=== PATIENT | male | born 1995 | race Caucasian/White ===

== ENCOUNTER 2017-03-11 13:40 | Emergency (ER) | payer MEDICAID ==
[~2017-03-11] VITALS: Ht 188 cm; Wt 68.0 kg
[2017-03-11 14:14] VITALS: BP 131/84
== END 2017-03-11 15:43 | disposition home or self-care (01) ==
LOC: ER 13:49
DX: S42.262A Displaced fracture of lesser tuberosity of left humerus, initial encounter for closed fracture (principal); X58.XXXA Exposure to other specified factors, initial encounter; Y93.89 Activity, other specified; Y92.89 Other specified places as the place of occurrence of the external cause; Y99.8 Other external cause status
CPT/HCPCS: 73030

== ENCOUNTER 2017-05-10 18:46 | Emergency (ER) | payer MEDICAID ==
[~2017-05-10] VITALS: Ht 190.5 cm; Wt 68.0 kg
[2017-05-10] MEDS ORDERED: ONDANSETRON HCL 4 MG/2 ML VIAL IV ONE (19:30)
[2017-05-10] MEDS ORDERED: HYDROmorphone HCL 2 MG/ML VL IV ONE (19:30)
[2017-05-10] MEDS ORDERED: LEVETIRACETAM INJ 1,000 MG in SODIUM CHL 0.9% 100 ML IV ONE (19:30)
[2017-05-10] MEDS ORDERED: MORPHINE SULF INJ 2 MG/ML SYRINGE 1ML IV ONE (21:00)
[2017-05-10] MEDS ORDERED: ETOMIDATE (2MG/ML) 20ML VIAL IV ONE (21:30)
[2017-05-10] MEDS ORDERED: PROPOFOL 10 MG/ML 20 ML IV ONE ×2 (21:53→22:30)
[2017-05-10] MEDS ORDERED: LORazepam 2MG/ML-1ML VIAL IV ONE ×2 (22:30)
[2017-05-10 23:30] VITALS: BP 129/56
== END 2017-05-11 00:30 | disposition home or self-care (01) ==
LOC: ER 18:46
DX: S43.014A Anterior dislocation of right humerus, initial encounter (principal); S43.005A Unspecified dislocation of left shoulder joint, initial encounter; R56.9 Unspecified convulsions; W19.XXXA Unspecified fall, initial encounter; Y93.89 Activity, other specified; Y92.89 Other specified places as the place of occurrence of the external cause; Y99.8 Other external cause status
CPT/HCPCS: 23650; 73020; 73030; 96365; 96375; 99152; 99153; 99285; J1170; J1953; J2270; J2405; J2704; J7030

== ENCOUNTER 2018-01-29 17:51 | Emergency (ER) | payer MEDICAID, OTHER ==
[~2018-01-29] VITALS: Ht 177.8 cm; Wt 72.6 kg
[2018-01-29] MEDS ORDERED: SODIUM CHLORIDE 0.9% 1,000 ML IV ONE (19:30)
[2018-01-29] MEDS ORDERED: PROPOFOL 10 MG/ML 20 ML IV ONE (19:30)
[2018-01-29] MEDS ORDERED: LORazepam 2MG/ML-1ML VIAL IV ONE (19:45)
[2018-01-29] MEDS ORDERED: PROPOFOL 100 ML IV ONE (19:48)
[2018-01-29] MEDS ORDERED: FLUMAZENIL 0.1 MG/ML INJ 10ML MDV IV ONE ×2 (20:58→21:00)
[2018-01-29 22:02] VITALS: BP 125/65
== END 2018-01-29 22:37 | disposition home or self-care (01) ==
LOC: EDBD 17:51 → ER 18:01
DX: S42.291A Other displaced fracture of upper end of right humerus, initial encounter for closed fracture (principal); M24.411 Recurrent dislocation, right shoulder; X58.XXXA Exposure to other specified factors, initial encounter; Y93.89 Activity, other specified; Y92.89 Other specified places as the place of occurrence of the external cause; Y99.8 Other external cause status
CPT/HCPCS: 23650; 73020; 73030; 96374; 96375; 99152; 99285; J2060; J2704; J7030

== ENCOUNTER 2018-05-06 10:35 | Emergency (ER) | payer MEDICAID ==
[~2018-05-06] VITALS: Ht 188 cm; Wt 68.0 kg
[2018-05-06 10:40] VITALS: BP 116/74
== END 2018-05-06 12:19 | disposition home or self-care (01) ==
LOC: ER 10:38
DX: L03.116 Cellulitis of left lower limb (principal)

== ENCOUNTER 2018-09-04 05:01 | Emergency (ER) | payer MEDICAID ==
[~2018-09-04] VITALS: Ht 188 cm; Wt 68.0 kg
[2018-09-04 05:18] VITALS: BP 141/85
[2018-09-04] MEDS ORDERED: MIDAZOLAM HCL 5 MG/ML-1ML VIAL IM ONE (05:30)
== END 2018-09-04 06:35 | disposition home or self-care (01) ==
LOC: ER 05:01
DX: M24.411 Recurrent dislocation, right shoulder (principal)
CPT/HCPCS: 23650; 73020; 73030; 99284; J2250; 96372

== ENCOUNTER 2018-09-25 23:22 | Emergency (ER) | payer MEDICAID ==
[~2018-09-25] VITALS: Ht 190.5 cm; Wt 70.3 kg
[2018-09-26] VITALS: BP 132/85
[2018-09-26] MEDS ORDERED: ONDANSETRON HCL 4 MG/2 ML VIAL IV ONE
[2018-09-26] MEDS ORDERED: HYDROmorphone HCL 2 MG/ML VL IV ONE
[2018-09-26] MEDS ORDERED: MIDAZOLAM HCL 5 MG/ML-1ML VIAL IV ONE (00:45)
[2018-09-26] MEDS ORDERED: MIDAZOLAM HCL 1MG/1ML-2 ML VIAL IV ONE (00:45)
== END 2018-09-26 01:34 | disposition home or self-care (01) ==
LOC: ER 23:25
DX: S43.014A Anterior dislocation of right humerus, initial encounter (principal); X58.XXXA Exposure to other specified factors, initial encounter; Y93.89 Activity, other specified; Y99.8 Other external cause status; Y92.89 Other specified places as the place of occurrence of the external cause
CPT/HCPCS: 23650; 73020; 73030; 96374; 96375; 99284; J1170; J2250; J2405

== ENCOUNTER 2019-02-23 10:46 | Emergency (ER) | payer MEDICAID ==
[~2019-02-23] VITALS: Ht 190.5 cm; Wt 72.6 kg
[2019-02-23] MEDS ORDERED: MIDAZOLAM HCL 5 MG/ML-1ML VIAL IV ONE (12:30)
[2019-02-23] MEDS ORDERED: ETOMIDATE (2MG/ML) 20ML VIAL IV ONE (12:30)
[2019-02-23 16:12] VITALS: BP 119/79
== END 2019-02-23 16:14 | disposition home or self-care (01) ==
LOC: ER 10:46
DX: S43.004A Unspecified dislocation of right shoulder joint, initial encounter (principal); X50.0XXA Overexertion from strenuous movement or load, initial encounter; Y93.89 Activity, other specified; Y99.8 Other external cause status; Y92.89 Other specified places as the place of occurrence of the external cause
CPT/HCPCS: 23650; 73030; 99152; 99285; J2250

== ENCOUNTER 2019-06-02 16:13 | Emergency (ER) | payer MEDICAID ==
[~2019-06-02] VITALS: Ht 190.5 cm; Wt 72.6 kg
[2019-06-02] MEDS ORDERED: MIDAZOLAM HCL 5 MG/ML-1ML VIAL ONE (16:53)
[2019-06-02] MEDS ORDERED: ETOMIDATE (2MG/ML) 20ML VIAL IV ONE ×2 (16:55)
[2019-06-02] MEDS ORDERED: MIDAZOLAM HCL 5 MG/ML-1ML VIAL IV ONE (16:55)
[2019-06-02 17:55] VITALS: BP 131/85
== END 2019-06-02 18:31 | disposition home or self-care (01) ==
LOC: ER 16:13
DX: S43.004A Unspecified dislocation of right shoulder joint, initial encounter (principal); X50.1XXA Overexertion from prolonged static or awkward postures, initial encounter; Y93.89 Activity, other specified; Y92.89 Other specified places as the place of occurrence of the external cause; Y99.8 Other external cause status
CPT/HCPCS: 23650; 73030; 99152; 99285; J2250

== ENCOUNTER 2019-06-05 23:31 | Emergency (ER) | payer MEDICAID ==
[~2019-06-05] VITALS: Ht 190.5 cm; Wt 72.6 kg
[2019-06-06] MEDS ORDERED: MORPHINE SULFATE 4 MG/ML SYR/VIAL IV ONE (02:30)
[2019-06-06] MEDS ORDERED: ONDANSETRON HCL 4 MG/2 ML VIAL IV ONE (02:30)
[2019-06-06] MEDS ORDERED: ETOMIDATE (2MG/ML) 20ML VIAL IV ONE (02:45)
[2019-06-06 03:39] VITALS: BP 125/81
== END 2019-06-06 04:16 | disposition home or self-care (01) ==
LOC: ER 23:36
DX: S43.004A Unspecified dislocation of right shoulder joint, initial encounter (principal); X58.XXXA Exposure to other specified factors, initial encounter; Y93.89 Activity, other specified; Y92.89 Other specified places as the place of occurrence of the external cause; Y99.8 Other external cause status
CPT/HCPCS: 23650; 73020; 73030; 96374; 96375; 99285; J2270; J2405

== ENCOUNTER 2019-07-07 08:19 | Emergency (ER) | payer MEDICAID ==
[~2019-07-07] VITALS: Ht 167.6 cm; Wt 68.0 kg
[2019-07-07 09:27] LABS: Basophils # (auto) 0 uL; Basophils % (auto) 0.4 % (0.0-2.0); Eosinophils # (auto) 0 uL; Eosinophils % (auto) 0.4 % (0.0-7.0); Hematocrit 47.5 % (41.0-53.0); Hemoglobin 16.1 g/dL (13.5-17.5); Lymphocytes # (auto) 1.2 uL; Lymphocytes % (auto) 10.4 % (10.0-50.0); Mean Corpuscular Hemoglobin 30.5 pg (28.0-32.0); Mean Corpuscular Volume 89.9 fL (80.0-100.0); Monocytes # (auto) 0.5 uL; Monocytes % (auto) 4.7 % (0.0-12.0); Neutrophils # (auto) 9.4 uL; Neutrophils % (auto) 84.1 % (37.0-80.0); Nucleated Red Blood Cells % 0.3 %; Platelet Count (auto) 302 10^3/uL (140-450); Red Blood Cells 5.28 10^6/uL (4.5-5.90); Red Cell Distribution Width 13.5 % (11.8-14.3); White Blood Cell 11.2 10^3/uL (4.4-10.8)
[2019-07-07 09:46] LABS: Albumin 4.3 g/dL (3.4-5.0); Anion Gap 6 (5-15); Blood Alcohol < 3.0 mg/dL (0-5); Blood Urea Nitrogen 7 mg/dL (7-18); Calcium 8.8 mg/dL (8.5-10.1); Carbon Dioxide 25 mmol/L (21-32); Chloride 107 mmol/L (98-107); Glucose 170 mg/dL (74-106); Potassium 3.5 mmol/L (3.5-5.1); Sodium 138 mmol/L (136-145)
[2019-07-07 09:48] LABS: Salicylate 2.4 mg/dL (2.8-20.0)
[2019-07-07 09:48] LABS: Alcohol, Urine < 3.0 mg/dL (0-5); Amphetamine Screen, Urine POSITIVE (NEGATIVE); Barbiturate Scree,Urine NEGATIVE (NEGATIVE); Benzodiazephine Screen, Urine POSITIVE (NEGATIVE); Cannabinoid Screen, Urine POSITIVE (NEGATIVE); Cocaine Screen, Urine NEGATIVE (NEGATIVE); Opiate Scree,Urine NEGATIVE (NEGATIVE)
[2019-07-07 09:50] LABS: Alanine Aminotransferase 31 U/L (16-61); Alkaline Phosphatase 117 U/L (45-117); Aspartate Aminotransferase 23 U/L (15-37); BUN/Creatinine Ratio 6.1; Bilirubin, Total 0.5 mg/dL (0.2-1.0); GFR African American 103 mL/min; GFR Non-African American 85 mL/min; Magnesium 2.3 mg/dL (1.6-2.6); Total Protein 8.5 g/dL (6.4-8.2)
[2019-07-07 09:57] LABS: Phencyclidine Screen, Urine NEGATIVE (NEGATIVE)
[2019-07-07 10:01] LABS: Acetaminophen < 2.0 ug/mL (10-30)
[2019-07-07] MEDS ORDERED: SODIUM CHLORIDE 0.9% 1,000 ML IVB ONE (11:34)
[2019-07-07 12:29] LABS: INR 1.11 (0.9-1.15)
[2019-07-07] MEDS ORDERED: ONDANSETRON HCL 4 MG/2 ML VIAL IV ONE (13:30)
[2019-07-07 15:39] VITALS: BP 137/84
== END 2019-07-07 15:29 | disposition home or self-care (01) ==
LOC: ER 08:19 → EDBD 08:19 → ER 15:29
DX: F12.10 Cannabis abuse, uncomplicated (principal); F15.10 Other stimulant abuse, uncomplicated; F19.10 Other psychoactive substance abuse, uncomplicated; F32.9 Major depressive disorder, single episode, unspecified
CPT/HCPCS: 36415; 70450; 71045; 80053; 80307; 80320; 80329; 83735; 85025; 85610; 85730; 93005; 96361; 96374; 99284; J2405; J7030

== ENCOUNTER 2020-01-12 04:24 | Emergency (ER) | payer MEDICAID ==
[~2020-01-12] VITALS: Ht 175.3 cm; Wt 65.8 kg
[2020-01-12 05:18] LABS: Basophils # (auto) 0 10 ^3/uL (0-0.2); Basophils % (auto) 0.7 % (0.0-2.0); Eosinophils # (auto) 0.3 10 ^3/uL (0-0.8); Eosinophils % (auto) 4.4 % (0.0-7.0); Hematocrit 47.9 % (41.0-53.0); Hemoglobin 16.2 g/dL (13.5-17.5); Lymphocytes # (auto) 1.5 10 ^3/uL (0.4-5.4); Lymphocytes % (auto) 24.1 % (10.0-50.0); Mean Corpuscular Hemoglobin 29.5 pg (28.0-32.0); Mean Corpuscular Hgb Conc. 33.9 g/dL (32.0-36.0); Mean Corpuscular Volume 86.9 fL (80.0-100.0); Monocytes # (auto) 0.5 10 ^3/uL (0-1.3); Monocytes % (auto) 8.5 % (0.0-12.0); Neutrophils # (auto) 3.8 10 ^3/uL (1.6-8.6); Neutrophils % (auto) 62.3 % (37.0-80.0); Nucleated Red Blood Cells % 0.5 %; Platelet Count (auto) 220 10^3/uL (140-450); Red Blood Cells 5.51 10^6/uL (4.5-5.90); Red Cell Distribution Width 12.8 % (11.8-14.3)
[2020-01-12 05:39] LABS: Anion Gap 10 (5-15); Blood Urea Nitrogen 14 mg/dL (7-18); Calcium 8.5 mg/dL (8.5-10.1); Carbon Dioxide 26 mmol/L (21-32); Chloride 101 mmol/L (98-107); Glucose 166 mg/dL (74-106); Potassium 3.6 mmol/L (3.5-5.1); Sodium 137 mmol/L (136-145)
[2020-01-12 05:41] LABS: Alanine Aminotransferase 46 U/L (16-61); Aspartate Aminotransferase 39 U/L (15-37); Blood Alcohol < 3.0 mg/dL (0-5); GFR African American 63 mL/min; GFR Non-African American 52 mL/min; Salicylate < 1.7 mg/dL (2.8-20.0)
[2020-01-12 05:43] LABS: Acetaminophen < 2.0 ug/mL (10-30)
[2020-01-12 05:44] LABS: Alkaline Phosphatase 138 U/L (45-117); Bilirubin, Total 1.4 mg/dL (0.2-1.0); Total Protein 7.3 g/dL (6.4-8.2)
[2020-01-12 06:41] LABS: Alcohol, Urine < 3.0 mg/dL (0-10); Amphetamine Screen, Urine POSITIVE (NEGATIVE); Barbiturate Scree,Urine NEGATIVE (NEGATIVE); Benzodiazephine Screen, Urine POSITIVE (NEGATIVE); Cannabinoid Screen, Urine POSITIVE (NEGATIVE); Cocaine Screen, Urine POSITIVE (NEGATIVE); Opiate Scree,Urine NEGATIVE (NEGATIVE); Phencyclidine Screen, Urine NEGATIVE (NEGATIVE)
[2020-01-12 08:46] VITALS: BP 123/81
== END 2020-01-12 08:47 | disposition home or self-care (01) ==
LOC: ER 04:24 → EDBD 04:24 → ER 08:47
DX: R40.4 Transient alteration of awareness (principal); F19.10 Other psychoactive substance abuse, uncomplicated
CPT/HCPCS: 36415; 80053; 80307; 80320; 80329; 85025; 93005

== ENCOUNTER 2020-02-28 12:25 | Emergency (ER) | payer MEDICAID ==
[~2020-02-28] VITALS: Ht 185.4 cm; Wt 77.1 kg
[2020-02-28] MEDS ORDERED: ETOMIDATE (2MG/ML) 20ML VIAL IV ONE (12:45)
[2020-02-28 13:40] VITALS: BP 153/81
== END 2020-02-28 14:06 | disposition home or self-care (01) ==
LOC: ER 12:25
DX: S43.004A Unspecified dislocation of right shoulder joint, initial encounter (principal); X58.XXXA Exposure to other specified factors, initial encounter; Y93.89 Activity, other specified; Y92.89 Other specified places as the place of occurrence of the external cause; Y99.8 Other external cause status
CPT/HCPCS: 23650; 73020; 99152

== ENCOUNTER 2021-03-01 00:11 | Emergency (ER) | payer MEDICAID ==
[~2021-03-01] VITALS: Ht 193 cm; Wt 86.2 kg
[2021-03-01] MEDS ORDERED: ETOMIDATE (2MG/ML) 20ML VIAL IV ONE ×2 (00:30→01:30)
[2021-03-01] MEDS ORDERED: fentaNYL CITRATE 100 MCG/2 ML VL IV ONE (00:30)
[2021-03-01 02:01] VITALS: BP 121/70
== END 2021-03-01 02:00 | disposition home or self-care (01) ==
LOC: ER 00:14
DX: S43.004A Unspecified dislocation of right shoulder joint, initial encounter (principal); X50.1XXA Overexertion from prolonged static or awkward postures, initial encounter; Y93.89 Activity, other specified; Y92.89 Other specified places as the place of occurrence of the external cause; Y99.8 Other external cause status
CPT/HCPCS: 23650; 73020; 73030; 96374; 99152; 99285; J3010

== ENCOUNTER 2021-05-10 04:22 | Emergency (ER) | payer MEDICAID ==
[~2021-05-10] VITALS: Ht 190.5 cm; Wt 81.6 kg
[2021-05-10] MEDS ORDERED: ONDANSETRON HCL 4 MG/2 ML VIAL IV ONE (09:15)
[2021-05-10] MEDS ORDERED: HYDROmorphone HCL 2 MG/ML VL IV ONE (09:15)
[2021-05-10] MEDS ORDERED: ETOMIDATE (2MG/ML) 20ML VIAL IV STA (10:49)
[2021-05-10 11:38] VITALS: BP 148/89
== END 2021-05-10 12:42 | disposition home or self-care (01) ==
LOC: ER 04:22
DX: S43.004A Unspecified dislocation of right shoulder joint, initial encounter (principal); W01.0XXA Fall on same level from slipping, tripping and stumbling without subsequent striking against object, initial encounter; Y93.89 Activity, other specified; Y92.89 Other specified places as the place of occurrence of the external cause; Y99.8 Other external cause status
CPT/HCPCS: 23650; 73020; 73030; 96374; 96375; 99285; J1170; J2405

== ENCOUNTER 2021-07-03 14:33 | Emergency (ER) | payer MEDICAID ==
[~2021-07-03] VITALS: Ht 190.5 cm; Wt 72.6 kg
[2021-07-03] MEDS ORDERED: ETOMIDATE (2MG/ML) 20ML VIAL IV ONE (16:45)
[2021-07-03] MEDS ORDERED: MORPHINE SULFATE 4 MG/ML SYR/VIAL IV ONE (18:30)
[2021-07-03 20:00] VITALS: BP 123/87
== END 2021-07-03 20:15 | disposition home or self-care (01) ==
LOC: ER 14:33
DX: S43.004A Unspecified dislocation of right shoulder joint, initial encounter (principal); S42.291A Other displaced fracture of upper end of right humerus, initial encounter for closed fracture; X50.1XXA Overexertion from prolonged static or awkward postures, initial encounter; Y93.89 Activity, other specified; Y92.89 Other specified places as the place of occurrence of the external cause; Y99.8 Other external cause status
CPT/HCPCS: 23650; 73020; 73030; 96374; 99152; 99285; J2270

== ENCOUNTER 2021-10-03 01:21 | Emergency (ER) | payer MEDICAID ==
[~2021-10-03] VITALS: Ht 190.5 cm; Wt 72.6 kg
[2021-10-03] MEDS ORDERED: LIDOCAINE 1% HCL (LOCAL ANESTH.) INJ 20ML MDV IJ ONE ×3 (01:45→02:00)
[2021-10-03] MEDS ORDERED: LIDOCAINE 1%HCL (LOCAL ANESTH) 10 ML MDV ONE (01:49)
[2021-10-03] MEDS ORDERED: HYDROcodone-ACET 5/325MG TAB PO ONE (02:15)
[2021-10-03] MEDS ORDERED: fentaNYL CITRATE 100 MCG/2 ML VL IV ONE ×2 (02:15→03:30)
[2021-10-03] MEDS ORDERED: MIDAZOLAM HCL 5 MG/ML-1ML VIAL IM ONE ×2 (02:15)
[2021-10-03] MEDS ORDERED: ETOMIDATE (2MG/ML) 20ML VIAL IV ONE ×2 (06:30)
[2021-10-03 07:00] VITALS: BP 149/89
== END 2021-10-03 08:19 | disposition home or self-care (01) ==
LOC: ER 01:21
DX: S43.014A Anterior dislocation of right humerus, initial encounter (principal); X58.XXXA Exposure to other specified factors, initial encounter; Y93.89 Activity, other specified; Y92.89 Other specified places as the place of occurrence of the external cause; Y99.8 Other external cause status
CPT/HCPCS: 23650; 73020; 96372; 96374; 99285; J2001; J2250; J3010

== ENCOUNTER 2023-04-16 15:14 | Emergency (ER) | payer MEDICAID ==
[~2023-04-16] VITALS: Ht 190.5 cm; Wt 73.5 kg
[2023-04-16 16:25] LABS: Urine Bacteria NONE SEEN /hpf (None Seen); Urine Blood Negative /uL (Negative); Urine Clarity Clear (Clear); Urine Color Yellow (Yellow); Urine Protein, UAD TRACE (Negative); Urine Specific Gravity 1.019 (1.001-1.035); Urine Sperm PRESENT /hpf (None Seen); Urine Urobilinogen Normal (Negative); Urine WBC 2 /hpf (0 - 3)
[2023-04-16 16:39] LABS: Amphetamine Screen, Urine Pos (NEGATIVE); Barbiturate Scree,Urine Neg (NEGATIVE); Benzodiazephine Screen, Urine Neg (NEGATIVE); Cannabinoid Screen, Urine Neg (NEGATIVE); Cocaine Screen, Urine Neg (NEGATIVE); Opiate Scree,Urine Neg (NEGATIVE); Phencyclidine Screen, Urine Neg (NEGATIVE)
[2023-04-16 17:20] VITALS: BP 116/83; PULSE 75; RESP 18; TEMP 97.5; O2SAT 98
== END 2023-04-16 17:22 | disposition home or self-care (01) ==
LOC: ER 15:14
DX: F15.10 Other stimulant abuse, uncomplicated (principal); F13.20 Sedative, hypnotic or anxiolytic dependence, uncomplicated
CPT/HCPCS: 80307; 81001

== ENCOUNTER 2023-08-09 14:41 | Emergency (ER) | payer MEDICAID ==
[~2023-08-09] VITALS: Ht 190.5 cm; Wt 74.2 kg
[2023-08-09] MEDS: HYDROmorphone HCL 2 MG/ML VL/or syr IM ONE (18:25)
[2023-08-09 23:34] VITALS: PULSE 60; RESP 21; O2SAT 100
[2023-08-09] MEDS: PROPOFOL 10 MG/ML 20 ML IV ONE (23:49)
[2023-08-10] VITALS: TEMP 97.1
[2023-08-10] MEDS: fentaNYL CITRATE 100 MCG/2 ML VL IM ONE (00:50)
[2023-08-10 01:15] VITALS: BP 133/89; PULSE 58; RESP 16; O2SAT 98
[2023-08-10] MEDS ORDERED: CYCL-837 PO (01:16)
[2023-08-10] MEDS: ONDANSETRON ODT 4 MG TAB PO ONE (01:19)
== END 2023-08-10 01:26 | disposition home or self-care (01) ==
LOC: ER 14:41
DX: S43.004A Unspecified dislocation of right shoulder joint, initial encounter (principal); F12.10 Cannabis abuse, uncomplicated; F15.10 Other stimulant abuse, uncomplicated; X58.XXXA Exposure to other specified factors, initial encounter; Y93.89 Activity, other specified; Y92.89 Other specified places as the place of occurrence of the external cause; Y99.8 Other external cause status
CPT/HCPCS: 23650; 73020; 73030; 99285; J2704; J3010; Q0162; 96374

== ENCOUNTER 2023-11-22 16:24 | Emergency (ER) | payer MEDICAID ==
[~2023-11-22] VITALS: Ht 190.5 cm; Wt 73.6 kg
[~2023-11-22 16:24] MED LIST: CYCL-837 PO
[2023-11-22 17:46] VITALS: PULSE 70; RESP 12; O2SAT 98
[2023-11-22] MEDS: KETOROLAC TROMETH 30 MG/ML 1ML VIAL IV ONE (17:54)
[2023-11-22 19:40] VITALS: PULSE 94; RESP 24
[2023-11-22] MEDS: PROPOFOL 10 MG/ML 20 ML IV ONE (20:00)
[2023-11-22 20:47] VITALS: TEMP 98.1
[2023-11-22] MEDS: MIDAZOLAM HCL 2MG/2ML 2ml VIAL (1mg/ml) IV ONE (21:15)
[2023-11-22] MEDS: KETAMINE 50mg/ML 1ml syringe IV ONE (21:15)
[2023-11-22] MEDS: METOPROLOL TARTRATE 1MG/1ML-5ML VIAL IV SCH (21:15)
[2023-11-22] MEDS: ETOMIDATE (2MG/ML) 20ML VIAL IV ONE (21:26)
[2023-11-23 01:00] VITALS: BP 129/76; PULSE 60; RESP 11; O2SAT 94
== END 2023-11-23 01:00 | disposition home or self-care (01) ==
LOC: ER 16:35
DX: S43.014A Anterior dislocation of right humerus, initial encounter (principal); F12.10 Cannabis abuse, uncomplicated; F15.10 Other stimulant abuse, uncomplicated; X58.XXXA Exposure to other specified factors, initial encounter; Y93.89 Activity, other specified; Y92.810 Car as the place of occurrence of the external cause; Y99.8 Other external cause status
CPT/HCPCS: 23650; 73030; 99152; 99285; J1885; J2250; J2704

== ENCOUNTER 2025-01-08 07:48 | Emergency (ER) | payer MEDICAID ==
[~2025-01-08] VITALS: Ht 190.5 cm; Wt 76.4 kg
[2025-01-08 08:24] VITALS: TEMP 98.4
--- NOTE | 2025-01-08 08:26 | ED.PDOC ---
Musculoskeletal HPI Comments 29-year-old male with no significant medical history presented to the ER with a right shoulder pain. Patient reports that he has recurrent shoulder dislocation and it does not take much for his shoulder to get dislocated. Chief Complaint: Upper Extremity Time Seen by MD: 08:05 Primary Care Provider: NONE Reviewed Notes: Nurses Notes, Medications, Allergies Allergies: Coded Allergies: NO KNOWN ALLERGIES (Unverified , 07/07/19) Home Meds Active Scripts Cyclobenzaprine Hcl (Cyclobenzaprine Hcl) 5 Mg Tab, 1 TAB PO TID PRN, #30 TAB Prov:RAYMOND GUZMAN 08/10/23 Past Medical History PAST MEDICAL HISTORY: Denies Surgical History: Denies all surgeries Family History Family History: Unknown Social History Smoker: Non-Smoker Alcohol: Denies ETOH Use Drugs: Marijuana, Methamphetamine, Other Lives In: Home Constitutional: denies: chills, diaphoresis, fatigue, fever, malaise, sweats, weakness, others EENTM: denies: blurred vision, double vision, ear bleeding, ear discharge, ear drainage, ear pain, ear ringing, eye pain, eye redness, hearing loss, mouth pain, mouth swelling, nasal discharge, nose bleeding, nose congestion, nose pain, photophobia, tearing, throat pain, throat swelling, voice changes, others Respiratory: denies: cough, hemoptysis, orthopnea, SOB at rest, shortness of breath, SOB with excertion, stridor, wheezing, others Cardiovascular: denies: chest pain, dizzy spells, diaphoresis, Dyspnea on exertion, edema, irregular heart beat, left arm pain, lightheadedness, palpitations, PND, syncope, others Gastrointestinal: denies: abdomen distended, abdominal pain, blood streaked bowels, constipated, diarrhea, dysphagia, difficulty swallowing, hematemesis, melena, nausea, poor appetite, poor fluid intake, rectal bleeding, rectal pain, vomiting, others Genitourinary: denies: burning, dysuria, flank pain, frequency, hematuria, incontinence, penile discharge, penile sore, pain, testicle pain, testicle swelling, urgency, others Neurological: denies: dizziness, fainting, headache, left sided numbness, left sided weakness, numbness, paresthesia, pre-existing deficit, right sided numbness, right sided weakness, seizure, speech problems, tingling, tremors, weakness, others Musculoskeletal: reports: joint pain (Shoulder pain right) Integumetry: denies: bruises, change in color, change in hair/nails, dryness, laceration, lesions, lumps, rash, wounds, others Allergic/Immunocompromised: denies: Difficulty Healing, Frequent Infections, Hives, Itching, others Hematologic/Lymphatic: denies: anemia, blood clots, easy bleeding, easy bruising, swollen glands, others Endocrine: denies: excessive hunger, excessive sweating, excessive thirst, excessive urination, flushing, intolerance to cold, intolerance to heat, unexplained weight gain, unexplained weight loss, others Psychiatric: denies: anxiety, bipolar disorder, depression, hopeless, panic disorder, schizophrenia, sleepless, suicidal, others Physical Exam General Appearance: Mild Distress, Moderate Distress HEENT: PERRL/EOMI, Pharynx Normal Neck: Full Range of Motion, Non-Tender, Normal Inspection Respiratory: Lungs Clear, No Accessory Muscle Use, No Respiratory Distress, Normal Breath Sounds Cardiovascular: No Edema, No JVD, No Murmur, Normal Peripheral Pulses, Regular Rate/Rhythm Breast Exam: Deferred Gastrointestinal: No Organomegaly, Non Tender, No Pulsatile Mass, Normal Bowel Sounds, Soft Genitalia: Deferred Pelvic: Deferred Rectal: Deferred Extremities: No calf tenderness, Normal inspection, Other (right upper arm adducted and decreased range of motion) Neurologic: Alert, cat skinner II-XII nml as Tested, No Motor Deficits, No Sensory Deficits Cerebellar Function: Normal Reflexes: NOT DONE Skin: Dry, Normal Color, Warm Peripheral Pulses: 2+ dorsalis pedis (R), 2+ dorsalis pedis (L), 2+ Radial (R), 2+ Radial (L) Lymphatic: No Adenopathy Was a procedure done? Was a procedure done?: Yes Sedation Sedation?: Yes Informed consent obtained: Yes Sedation start time: 09:35 Sedation end time: 09:58 Sedation total time: 23 mins Moderate/Procedural Sedation Indication: Procedure Assessment: History and Physical Procedure: Senior Sustainability Advisor, EKG Rhythm, Pulse Oximetry, Oxygen Saturation, Medications administered Sedation Start Time 0935 Complications: Monitored during, Monitored after/recovered, Uneventful Risks/benefits/alt described: Yes Reduction Indication: Dislocation Sedation: Sedation as ordered (conscious sedation with ketamine) Intra-articular anesthetic sara: No Post-reduction x-ray show: Reduction Informed consent obtained: Yes Risks/benefits/alt described: Yes Differential Diagnosis EXT Differential Diagnosis: Sprain, Dislocation X-Ray, Labs, Meds, VS Vital Signs Date Time Temp Pulse Resp B/P (MAP) Pulse Ox O2 Delivery O2 Flow Rate FiO2 01/08/25 09:35 60 24 99 2.0 28 66 35 100 59 99 01/08/25 09:20 59 17 137/99 01/08/25 08:43 67 25 127/68 01/08/25 08:30 67 27 95 Room Air* 0 21 01/08/25 08:24 98.4 67 26 127/68 (87) 97 98.4 01/08/25 08:09 98.1 83 20 125/84 (98) 98 98.1 Current Medications Medications (Trade) Dose Ordered Sig/Julia Route Start Time Stop Time Status Last Admin Morphine Sulfate 2 mg ONCE ONCE IV 01/08/25 08:15 01/08/25 08:17 DC 01/08/25 08:43 Ondansetron HCl (Zofran) 4 mg ONCE ONCE IV 01/08/25 08:30 01/08/25 08:31 DC 01/08/25 08:45 Ketamine HCl (Ketalar) 150 mg ONCE ONCE IV 01/08/25 09:30 01/08/25 09:33 DC 01/08/25 09:35 29-year-old male presented to the ED with a right shoulder dislocation. Patient reported history of recurrent shoulder dislocation. Patient was given conscious sedation with ketamine, and monitored with the ECG monitor, cardiac technician, blood pressure, capnography and dislocated shoulder was reduced with a post x-ray showing right shoulder in place at the glenoid cavity, no acute fracture or dislocation was reported. Patient's sedation weaned off and is A/O X 4. Right arm placed in sling. Patient is discharged in stable condition to home advised to follow up with the PCP, continue using the sling for support and physical therapy is recommended. Time of 1ST Reevaluation: 11:03 Reevaluation 1ST: Improved Patient Education/Counseling: Diagnosis, Treatment Family Education/Counseling: No Family Present Departure 1 Departure Time of Disposition: 12:32 Impression: Primary Impression: Dislocation of right shoulder joint Disposition: 01 HOME / SELF CARE / HOMELESS Condition: Stable Critical Care Note Critical Care Time?: No Stability Stability form required: No Heart Score Heart Score: Heart Score Response (Comments) Value History N/A 0 EKG N/A 0 Age N/A 0 Risk Factors N/A 0 Troponin N/A 0 Total 0 JENNIFER NOONAN RESIDENT Jan 08, 2025 08:26
[2025-01-08 08:30] VITALS: PULSE 67; RESP 27; O2SAT 95
[2025-01-08] MEDS: MORPHINE SULFATE INJ 2 MG/ml SYRG IV ONE (08:43)
[2025-01-08] MEDS: ONDANSETRON HCL 4 MG/2 ML VIAL ONE (08:43)
[2025-01-08] MEDS: ONDANSETRON HCL 4 MG/2 ML VIAL IV ONE (08:45)
[2025-01-08] MEDS: KETAMINE 50mg/ML 10ml Vial (500mg/10ml) IV ONE (09:35)
--- NOTE | 2025-01-08 10:21 | DVH ---
CLINICAL INDICATION: post shoulder reduction TECHNIQUE: XY R SHOULDER 1V XRAY Comparison: XY R SHOULDER 2+ VIEW XRAY on DOS: 11/22/23, XY R SHOULDER 2+ VIEW XRAY on DOS: 11/22/23, XY R SHOULDER 1V XRAY on DOS: 08/10/23, XY R SHOULDER 2+ VIEW XRAY on DOS: 08/09/23, R SHOULDER 1V XRAY on DOS: 10/03/21 FINDINGS/IMPRESSION: : There is no evidence of acute fracture or dislocation. Soft tissues are unremarkable.
[2025-01-08 12:00] VITALS: BP 136/96; PULSE 65; RESP 16; O2SAT 96
== END 2025-01-08 13:51 | disposition home or self-care (01) ==
LOC: ER 07:48
DX: S43.004A Unspecified dislocation of right shoulder joint, initial encounter (principal); F12.90 Cannabis use, unspecified, uncomplicated; X58.XXXA Exposure to other specified factors, initial encounter; Y93.89 Activity, other specified; Y92.89 Other specified places as the place of occurrence of the external cause; Y99.8 Other external cause status
CPT/HCPCS: 23650; 73020; 96374; 96375; 99152; 99153; 99285; J2270; J2405